=== PATIENT | female | born 1980 | race Caucasian/White ===

== ENCOUNTER 2019-07-01 12:31 | Emergency (ER) | payer OTHER ==
[~2019-07-01] VITALS: Ht 154.9 cm; Wt 52.3 kg
[~2019-07-01 12:31] MED LIST: PRED10TA PO
[2019-07-01 12:35] VITALS: BP 103/70
[2019-07-01] MEDS ORDERED: ketorolac trometh inj. 60 MG/2 ML VIAL IM ONE (13:20)
[2019-07-01] MEDS ORDERED: triamcinolone acetonide 40mg/ml inj IM ONE (13:20)
[2019-07-01] MEDS ORDERED: TRAM50TA2 PO (13:29)
[2019-07-01] MEDS ORDERED: DEC4T PO (13:29)
[2019-07-01] MEDS ORDERED: CYCL-1 PO (13:29)
== END 2019-07-01 13:57 | disposition home or self-care (01) ==
LOC: ER 12:31
DX: M54.5 Low back pain (principal); Z79.899 Other long term (current) drug therapy; X50.0XXA Overexertion from strenuous movement or load, initial encounter; Y93.89 Activity, other specified; Y92.89 Other specified places as the place of occurrence of the external cause; Y99.8 Other external cause status
CPT/HCPCS: 96372; 99283; J1885; J3301

== ENCOUNTER 2020-06-03 14:32 | Emergency (ER) | payer OTHER ==
[~2020-06-03] VITALS: Ht 154.9 cm; Wt 56.8 kg
[~2020-06-03 14:32] MED LIST changes: +CYCL-1 PO; +DEC4T PO
[2020-06-03 14:44] VITALS: BP 101/62
== END 2020-06-03 16:13 | disposition home or self-care (01) ==
LOC: ER 14:32
DX: S60.221A Contusion of right hand, initial encounter (principal); M25.531 Pain in right wrist; Z72.89 Other problems related to lifestyle; Z79.899 Other long term (current) drug therapy; W18.39XA Other fall on same level, initial encounter; Y93.02 Activity, running; Y99.8 Other external cause status; Y92.89 Other specified places as the place of occurrence of the external cause
CPT/HCPCS: 29125; 73110; 99283